=== PATIENT | male | born 1945 ===

== ENCOUNTER 2017-03-09 08:35 | Outpatient (CLI) | payer OTHER | END 2017-03-09 08:43 | disposition home or self-care (01) | LOC: NUCLEAR 08:35 | DX: I82.493 Acute embolism and thrombosis of other specified deep vein of lower extremity, bilateral (principal) ==

== ENCOUNTER → 2017-03-16 | Outpatient (CLI) | payer OTHER | END | disposition home or self-care (01) | LOC: NUTRICION 08:28 → PPHC 09:00 | DX: E11.40 Type 2 diabetes mellitus with diabetic neuropathy, unspecified (principal); N18.2 Chronic kidney disease, stage 2 (mild); I10 Essential (primary) hypertension ==

== ENCOUNTER 2017-06-18 07:21 | Outpatient (CLI) | payer OTHER | END 2017-06-18 07:30 | disposition home or self-care (01) | LOC: LAB 07:21 | DX: I10 Essential (primary) hypertension (principal); D50.8 Other iron deficiency anemias; I87.2 Venous insufficiency (chronic) (peripheral); E11.21 Type 2 diabetes mellitus with diabetic nephropathy; I25.82 Chronic total occlusion of coronary artery; I25.83 Coronary atherosclerosis due to lipid rich plaque; E04.1 Nontoxic single thyroid nodule; M47.12 Other spondylosis with myelopathy, cervical region; M47.16 Other spondylosis with myelopathy, lumbar region; E11.40 Type 2 diabetes mellitus with diabetic neuropathy, unspecified; Z68.26 Body mass index [BMI] 26.0-26.9, adult; K57.30 Diverticulosis of large intestine without perforation or abscess without bleeding; N18.3 Chronic kidney disease, stage 3 (moderate); R60.1 Generalized edema; E78.4 Other hyperlipidemia ==

== ENCOUNTER 2017-06-18 08:22 | Outpatient (CLI) | payer OTHER | END 2017-06-18 08:25 | disposition home or self-care (01) | LOC: NUCLEAR 08:22 | DX: I11.0 Hypertensive heart disease with heart failure (principal); R60.9 Edema, unspecified; D50.8 Other iron deficiency anemias; I87.2 Venous insufficiency (chronic) (peripheral); E11.21 Type 2 diabetes mellitus with diabetic nephropathy; I25.82 Chronic total occlusion of coronary artery; I25.83 Coronary atherosclerosis due to lipid rich plaque; E04.1 Nontoxic single thyroid nodule; M47.12 Other spondylosis with myelopathy, cervical region; M47.16 Other spondylosis with myelopathy, lumbar region; E11.40 Type 2 diabetes mellitus with diabetic neuropathy, unspecified; E78.4 Other hyperlipidemia; Z68.26 Body mass index [BMI] 26.0-26.9, adult; K57.30 Diverticulosis of large intestine without perforation or abscess without bleeding; N18.3 Chronic kidney disease, stage 3 (moderate) ==

== ENCOUNTER 2017-06-18 08:29 | Outpatient (CLI) | payer OTHER | END 2017-06-18 08:32 | disposition home or self-care (01) | LOC: RAD 08:29 | DX: I10 Essential (primary) hypertension (principal); D50.8 Other iron deficiency anemias; I87.2 Venous insufficiency (chronic) (peripheral); E11.21 Type 2 diabetes mellitus with diabetic nephropathy; I25.82 Chronic total occlusion of coronary artery; I25.83 Coronary atherosclerosis due to lipid rich plaque; E04.1 Nontoxic single thyroid nodule; M47.12 Other spondylosis with myelopathy, cervical region; M47.16 Other spondylosis with myelopathy, lumbar region; E11.40 Type 2 diabetes mellitus with diabetic neuropathy, unspecified; Z68.26 Body mass index [BMI] 26.0-26.9, adult; K57.30 Diverticulosis of large intestine without perforation or abscess without bleeding; N18.3 Chronic kidney disease, stage 3 (moderate); R60.1 Generalized edema; E78.4 Other hyperlipidemia ==

== ENCOUNTER → 2017-08-20 | Outpatient (CLI) | payer OTHER | END | disposition home or self-care (01) | LOC: LAB 07:29 | DX: D63.1 Anemia in chronic kidney disease (principal); N18.3 Chronic kidney disease, stage 3 (moderate); D51.0 Vitamin B12 deficiency anemia due to intrinsic factor deficiency; D53.8 Other specified nutritional anemias; D50.8 Other iron deficiency anemias; D51.1 Vitamin B12 deficiency anemia due to selective vitamin B12 malabsorption with proteinuria; Z95.5 Presence of coronary angioplasty implant and graft; I10 Essential (primary) hypertension; E11.22 Type 2 diabetes mellitus with diabetic chronic kidney disease; D51.8 Other vitamin B12 deficiency anemias; R97.0 Elevated carcinoembryonic antigen [CEA]; R97.8 Other abnormal tumor markers ==

== ENCOUNTER 2017-09-17 07:57 | Outpatient (CLI) | payer OTHER | END 2017-09-17 07:59 | disposition home or self-care (01) | LOC: RAD 07:57 | DX: M86.8X4 Other osteomyelitis, hand (principal) ==

== ENCOUNTER 2017-10-12 00:10 | Emergency (ER) | payer OTHER ==
[~2017-10-12] VITALS: Ht 162.6 cm; Wt 68.0 kg
[2017-10-12] MEDS ORDERED: LASIX20 MG (00:20)
[2017-10-12] MEDS ORDERED: LISINOPRIL5 MG (00:20)
[2017-10-12] MEDS ORDERED: TOPROL XL25 M1 (00:21)
== END 2017-10-12 06:48 | disposition home or self-care (01) ==
LOC: ER 00:10
DX: N50.89 Other specified disorders of the male genital organs (principal)

== ENCOUNTER 2018-02-01 08:47 | Outpatient (CLI) | payer OTHER ==
[~2018-02-01 08:47] MED LIST: LASIX20 MG; LISINOPRIL5 MG; TOPROL XL25 M1
== END 2018-02-01 08:49 | disposition home or self-care (01) ==
LOC: SONOGRAMA 08:47
DX: R10.9 Unspecified abdominal pain (principal); N18.3 Chronic kidney disease, stage 3 (moderate); R31.9 Hematuria, unspecified

== ENCOUNTER 2018-02-01 10:02 | Outpatient (CLI) | payer OTHER | END 2018-02-01 15:00 | disposition home or self-care (01) | LOC: LAB 10:02 | DX: N18.3 Chronic kidney disease, stage 3 (moderate) (principal) ==

== ENCOUNTER → 2018-03-06 | Emergency (ER) | payer OTHER ==
[~2018-03-06] VITALS: Ht 165.1 cm; Wt 63.5 kg
[~2018-03-06] MED LIST changes: +ASA81 MG; +ASA81 MG PO; +LASIX20 MG PO; +LIPITOR20 MG PO; +LIPITOR40 MG; +TRADJENTA5 MG
== END | disposition expired ==
LOC: ER 16:16 → CPU-OBS 16:27
DX: D62 Acute posthemorrhagic anemia (principal); K92.1 Melena; K76.89 Other specified diseases of liver; R09.2 Respiratory arrest